=== PATIENT | female | born 1935 | race Caucasian/White ===

== ENCOUNTER 2017-02-27 00:47 | Emergency (ER) | payer MEDICARE, OTHER ==
[~2017-02-27] VITALS: Ht 172.7 cm; Wt 68.0 kg
[~2017-02-27 00:47] MED LIST: ACET325T9 PO; ALBU2.5V5 NEB; AMLO5TAB2 PO; ASPI-612 PO; ASPI325T11 PO; DIGO125T PO; DIGO50SO2 PO; DIVA250T PO; FURO-69 PO; INSU100I17 SQ; INSU100I18 SQ; LANOLIN TP; LISI-334 PO; MAGN400O7 PO; METO25TA4 PO; METO50TA2 PO; MULT1TAB52 PO; PANT40TA3 PO; RANI150C PO; SIMV10TA3 PO; ZINC OXIDE 10% TP
[2017-02-27 01:43] LABS: BILIRUBIN,URINE NEGATIVE (NEG); GLUCOSE,URINE NEGATIVE (NEG); NITRITE,URINE NEGATIVE (NEG); PH,URINE 5.5; PROTEIN,URINE 100 mg/dL (NEG-TRACE); UROBILINOGEN,URINE 0.2 mg/dL (0.2 mg/dL)
[2017-02-27 01:56] LABS: BACTERIA,URINE FEW /HPF (0-FEW); SQUAMOUS EPITHELIAL CELL,UR FEW /LPF; WBC,URINE TNTC /HPF (0-4)
[2017-02-27] MEDS ORDERED: SULF1TAB24 PO (02:04)
--- NOTE | 2017-02-27 02:04 | PHYS DOC ---
Past Medical History Past Medical History: A-Fib, Anemia, Anxiety, CAD, CHF, Constipation, COPD, CVA , Depression, Diabetes-Type II, GERD, High Cholesterol, Hypertension, Renal Disease, Schizophrenia, Other Additional Past Medical Histor: PVD,DDD Past Surgical History: Other Additional Past Surgical Histo: unknown Alcohol Use: None Drug Use: None Adult General Chief Complaint Chief Complaint: URINE CATHETER PROBLEM HPI HPI History and physical exam is limited secondary to the patient's dementia. Patient is a 81 year old female who was sent to the ER here for evaluation of cloudy urine. Patient is otherwise asymptomatic. She does have an indwelling Parish. Patient's physical exam was unremarkable. Patient's abdomen was soft nontender no rebound or guarding. Urinalysis positive for many leukocytes and WBCs. Assessment and plan Cloudy urine with urinary tract infection. Patient was started on Bactrim and fully catheter was changed. Patient was discharged home on Bactrim and to follow -up with her primary care physician. Review of Systems Review of Systems Constitutional: Denies fever or chills [] Eyes: Denies change in visual acuity, redness, or eye pain [] All other review systems are negative except as documented in the history of present illness portion. Current Medications Current Medications Current Medications Medications (Trade) Dose Ordered Sig/Bella Start Time Stop Time Status Last Admin Dose Admin Trimethoprim/ Sulfamethoxazole (Bactrim Ds) 1 tab 1X ONCE 02/27/17 02:30 02/27/17 02:31 DC 02/27/17 03:13 1 TAB Allergies Allergies Allergies Coded Allergies Type Severity Reaction Last Updated Verified hydrochlorothiazide Allergy Intermediate 02/12/16 Yes tetanus & diphtheria toxoids Allergy Intermediate 02/12/16 Yes tuberculin, purified protein deriva Allergy Intermediate 02/12/16 Yes adhesive tape Adverse Reaction Intermediate 03/06/16 Yes Physical Exam Physical Exam Constitutional: Cachectic HENT: Normocephalic, atraumatic, Eyes: l, no discharge. [] Neck: , no stridor. [] Cardiovascular:Heart rate regular rhythm, Lungs & Thorax: Bilateral breath sounds clear to auscultation [] Abdomen: Bowel sounds normal, soft, no tenderness, no masses, no pulsatile masses. [] Skin: Warm, dry, no erythema, no rash. [] Back: No tenderness, ] Extremities: no edema. [] Neurologic: no focal deficits noted. [] Psychologic: Affect normal, Current Patient Data Vital Signs Vital Signs Date Time Temp Pulse Resp B/P (MAP) Pulse Ox O2 Delivery O2 Flow Rate FiO2 02/27/17 02:49 62 140/63 (88) 98 Room Air 02/27/17 01:00 97.7 16 97.7 Lab Values Laboratory Tests Test 02/27/17 01:32 Urine Collection Type Unknown Urine Color Yellow Urine Clarity Turbid Urine pH 5.5 Urine Specific [place] 1.020 Urine Protein 100 mg/dL (NEG-TRACE) Urine Glucose (UA) Negative mg/dL (NEG) Urine Ketones (Stick) Negative mg/dL (NEG) Urine Blood Large (NEG) Urine Nitrite Negative (NEG) Urine Bilirubin Negative (NEG) Urine Urobilinogen Dipstick 0.2 mg/dL (0.2 mg/dL) Urine Leukocyte Esterase Large (NEG) Urine RBC 11-20 /HPF (0-2) Urine WBC Tntc /HPF (0-4) Urine Squamous Epithelial Cells Few /LPF Urine Amorphous Sediment Present /HPF Urine Bacteria Few /HPF (0-FEW) Urine Mucus Mod /LPF EKG EKG [] Radiology/Procedures Radiology/Procedures [] Course & Med Decision Making Course & Med Decision Making Pertinent Labs and Imaging studies reviewed. (See chart for details) [] Dragon Disclaimer Dragon Disclaimer This electronic medical record was generated, in whole or in part, using a voice recognition dictation system. Departure Departure Impression: Primary Impression: Urinary tract infection Disposition: 03 TRANSFER SNF Condition: STABLE Referrals: ZHANNA COBB MD (PCP) Patient Instructions: Catheter-Associated Urinary Tract Infection [facility] - [place], Urinary Tract Infection Additional Instructions: Please have her follow-up with her primary care physician for further management of her urinary catheter infection Scripts Sulfamethoxazole/Trimethoprim (BACTRIM DS TABLET) 1 Each Tablet 1 TAB PO BID for 10 Days, #20 TAB Prov: BENJI RAMESH MD 02/27/17 BENJI RAMESH MD Feb 27, 2017 02:04
[2017-02-27] MEDS ORDERED: SMZ/TMP 800/160MG TABLET. PO ONE (02:30)
[2017-02-27 02:49] VITALS: BP 140/63
== END 2017-02-27 03:25 | disposition home or self-care (01) ==
LOC: ER 00:47
DX: N39.0 Urinary tract infection, site not specified (principal); E78.00 Pure hypercholesterolemia, unspecified; F03.90 Unspecified dementia, unspecified severity, without behavioral disturbance, psychotic disturbance, mood disturbance, and anxiety; F20.9 Schizophrenia, unspecified; F32.9 Major depressive disorder, single episode, unspecified; I11.0 Hypertensive heart disease with heart failure; I50.9 Heart failure, unspecified; I48.91 Unspecified atrial fibrillation; I25.10 Atherosclerotic heart disease of native coronary artery without angina pectoris; F41.9 Anxiety disorder, unspecified; J44.9 Chronic obstructive pulmonary disease, unspecified; E11.9 Type 2 diabetes mellitus without complications; K21.9 Gastro-esophageal reflux disease without esophagitis; Z86.73 Personal history of transient ischemic attack (TIA), and cerebral infarction without residual deficits
CPT/HCPCS: 81001; 87086; 99284

== ENCOUNTER 2017-03-08 23:42 | Emergency (ER) | payer MEDICARE, OTHER ==
[~2017-03-08] VITALS: Ht 160 cm; Wt 63.5 kg
[~2017-03-08 23:42] MED LIST changes: +SULF1TAB24 PO
[2017-03-08 23:58] VITALS: BP 124/62
--- NOTE | 2017-03-09 | ED.ADGEN ---
Past Medical History Past Medical History: A-Fib, Anemia, Anxiety, CAD, CHF, Constipation, COPD, CVA , Depression, Diabetes-Type II, GERD, High Cholesterol, Hypertension, Renal Disease, Schizophrenia, Other Additional Past Medical Histor: PVD,DDD Past Surgical History: Other Additional Past Surgical Histo: unknown Alcohol Use: None Drug Use: None Adult General Chief Complaint Chief Complaint: Need for peripheral IV access HPI HPI Patient is a 81 year old female who presents with a IV access. [facility], but current IV is not operable or has . There are no other symptom complaints or acute reasons for the patient urgency department. History is limited due to the patient's chronic cognitive impairment. History is obtained from the EMS and confirmed with penitentiary and the penitentiary nurse practitioner. Review of Systems Review of Systems Review of systems unobtainable. Allergies Allergies Allergies Coded Allergies Type Severity Reaction Last Updated Verified hydrochlorothiazide Allergy Intermediate 02/12/16 Yes tetanus & diphtheria toxoids Allergy Intermediate 02/12/16 Yes tuberculin, purified protein deriva Allergy Intermediate 02/12/16 Yes adhesive tape Adverse Reaction Intermediate 03/06/16 Yes Physical Exam Physical Exam Constitutional: Cachectic, weak, chronically ill-appearing. HENT: Normocephalic, atraumatic, bilateral external ears normal, moist mucous membranes. Eyes: PERRL. Neck: Normal range of motion, supple. Cardiovascular: Regular rate and rhythm. Lungs & Thorax: Bilateral breath sounds clear to auscultation, respirations nonlabored. Abdomen: Bowel sounds normal, soft, no tenderness. Skin: Pale appearing. Extremities: Left foot pressure boot in place. Neurologic: Alert, nonverbal, does not follow commands. EKG EKG [] Radiology/Procedures Radiology/Procedures [] Course & Med Decision Making Course & Med Decision Making Pertinent Labs and Imaging studies reviewed. (See chart for details) [Peripheral IV established. Care plan confirmed with penitentiary who requests only peripheral IV and and will continue current care plan. ] Dragon Disclaimer Dragon Disclaimer This electronic medical record was generated, in whole or in part, using a voice recognition dictation system. ROBBIE RAUSCH DO Mar 09, 2017 00:00
== END 2017-03-09 00:54 | disposition home or self-care (01) ==
LOC: ER 23:42
DX: Z51.89 Encounter for other specified aftercare (principal); E11.9 Type 2 diabetes mellitus without complications; G31.84 Mild cognitive impairment of uncertain or unknown etiology; E78.00 Pure hypercholesterolemia, unspecified; F20.9 Schizophrenia, unspecified; F32.9 Major depressive disorder, single episode, unspecified; F41.9 Anxiety disorder, unspecified; I11.0 Hypertensive heart disease with heart failure; I25.10 Atherosclerotic heart disease of native coronary artery without angina pectoris; I48.91 Unspecified atrial fibrillation; I50.9 Heart failure, unspecified; I73.9 Peripheral vascular disease, unspecified; J44.9 Chronic obstructive pulmonary disease, unspecified; K21.9 Gastro-esophageal reflux disease without esophagitis; Z86.73 Personal history of transient ischemic attack (TIA), and cerebral infarction without residual deficits
CPT/HCPCS: 99284